=== PATIENT | female | born 1970 ===

== ENCOUNTER 2016-06-03 10:57 | Emergency (ER) | payer OTHER ==
[2016-06-03 11:34] VITALS: RESP 16; TEMP 98.6; BMI 32.9
--- NOTE | 2016-06-03 12:46 | ED PDOC ---
Arrival/HPI <Tomasz Delgadillo DO - Last Filed: 06/03/16 13:54> - General Historian: Patient - History of Present Illness Time/Duration: Prior to Arrival, > week <Conrad Espitia - Last Filed: 06/03/16 14:03> - General Chief Complaint: Finger,Hand,&Wrist Time Seen by Provider: 06/03/16 11:04 - History of Present Illness Narrative History of Present Illness (Text): 06/03/16 12:40 This is a 45 year old female with a PMH history significant for genital herpes presenting to the ED for evaluation of back pain and finger numbness s/p mechanical trip and fall on 05/21/16. The patient reports that she fell onto her outstretched left arm during the fall. She has noted intermittent neck pain since the fall that is managed well at home with IcyHot cream. The patient also notes that for the past 4 days she has noted intermittent numbness in her first, second, and third digits of her left hand related to her arm position. The patient reports no numbness currently and minimal pain currently since she applied IcyHot cream prior to her ED arrival. PMH: Genital Herpes Meds: Valtrex, Loratidine Surg: x 2 (last 2000), Gastric Bypass (2000), Oophrectomy (2014) Allergy: NKDA Social: Denies Tobacco/EtOH/Illicit Drugs (Conrad Espitia) Past Medical History - Provider Review Nursing Documentation Reviewed: Yes - Travel History Have you recently traveled outside [place] w/in the past 3 mons?: No - Past History Past History: Non-Contributing - Infectious Disease Hx of Infectious Diseases: None - Tetanus Immunization Tetanus Immunization: Up to Date - Reproductive Menopause: Yes (2014 s/p oophrectomy) - Past Medical History Past Medical History: Non-Contributing - Psychiatric Hx Depression: No Hx Emotional Abuse: No Hx Physical Abuse: No Hx Substance Use: No - Suicidal Assessment Feels Threatened In Home Enviroment: No <Conrad Espitia - Last Filed: 06/03/16 14:03> Family/Social History - Physician Review Nursing Documentation Reviewed: Yes Family/Social History: No Known Family HX Smoking Status: Never Smoked Hx Alcohol Use: Yes Hx Substance Use: No Hx Substance Use Treatment: No <Conrad Espitia - Last Filed: 06/03/16 14:03> Allergies/Home Meds <Tomasz Delgadillo DO - Last Filed: 06/03/16 13:54> <OmkarConrad harman - Last Filed: 06/03/16 14:03> Allergies/Adverse Reactions: Allergies No Known Allergies Allergy (Verified 05/08/12 11:20) Review of Systems - Physician Review All systems were reviewed & negative as marked: Yes - Review of Systems Musculoskeletal: Neck Pain, Other (Finger Numbness (1,2,3 digits left hand)). absent: Arthralgias, Joint Swelling Neurological: absent: Headache <Conrad Espitia - Last Filed: 06/03/16 14:03> Physical Exam Vital Signs Reviewed: Yes Temperature: Afebrile Blood Pressure: Normal Pulse: Regular Respiratory Rate: Normal Appearance: Positive for: Well-Appearing, Non-Toxic, Comfortable Pain Distress: None Mental Status: Positive for: Alert and Oriented X 3 - Systems Exam Head: Present: Atraumatic, Normocephalic Pupils: Present: PERRL Extroacular Muscles: Present: EOMI Conjunctiva: Present: Normal Mouth: Present: Moist Mucous Membranes Neck: Present: Normal Range of Motion, Paraspinal Tenderness, Other (Negatvie Modified Spurlings). No: Meningeal Signs, MIDLINE TENDERNESS Cardiovascular: Present: Regular Rate and Rhythm, Normal S1, S2. No: Murmurs Abdomen: Present: Normal Bowel Sounds. No: Tenderness, Distention, Peritoneal Signs Upper Extremity: Present: Normal Inspection, Other (Negative Durkans/Phalens/ Tinnels AIN/PIN/Med/Uln/Rad Nerves intact with 5/5 strength and intact/full sensation ). No: Cyanosis, Edema Lower Extremity: Present: Normal Inspection. No: Edema Neurological: Present: GCS=15, CN II-XII Intact, Speech Normal Skin: Present: Warm, Dry, Normal Color. No: Rashes Psychiatric: Present: Alert, Oriented x 3, Normal Insight, Normal Concentration <Conrad Espitia - Last Filed: 06/03/16 14:03> Vital Signs Temp Pulse Resp BP Pulse Ox 06/03/16 11:28 98.6 F 66 16 120/98 H 99 Medical Decision Making <Tomasz Delgadillo DO - Last Filed: 06/03/16 13:54> Re-evaluation Time: 13:50 Reassessment Condition: Re-examined, Improved - RAD Interpretation Service Unit Operator Oil Well: ED Physician, Radiologist <Conrad Espitia - Last Filed: 06/03/16 14:03> ED Course and Treatment: 06/03/16 12:20 45 year old female with back pain and finger numbness s/p a recent mechanical trip and fall. In agreement with resident note, which includes further HPI details. Patient was seen and evaluated with resident, came up with plan and treatment together. Physical exam was unremarkable. (Tomasz Delgadillo DO) 06/03/16 12:51 Impression: This is a 45 year old female with a PMH history significant for genital herpes presenting to the ED for evaluation of back pain and finger numbness s/p mechanical trip and fall on 05/21/16. The patient appears clinically stable. The pain is most likely muscular in origin. The patient has been managing well at home with IcyHot cream. The patient has no clinical signs of nerve entrapment or fracture. Differential: Cervical Sprain Muscle Spasm Fracture Plan: C-Spine XR Left Wrist XR Prior Visits: No prior inpatient admissions Progress Note: Patient seen and examined at the bedside. No acute distress. Full use of left UE without ROM impairment. Full ROM about the next. No pain to palpation of bony landmarks. The patient appears clinically well. Will preform imaging studies to ensure no fractures or dislocations are present. Patient will be instructed to follow up with PMD upon discharge. 06/03/16 13:52 XR results Negative. Results explained to the patient. The patient is currently asymptomatic. The patient was medically cleared for discharge. ( Conrad Espitia) - RAD Interpretation Narrative RAD Interpretations (Text): 06/03/16 13:49 PROCEDURE: Left Wrist Radiographs: No acute displaced fracture, dislocation, or significant joint effusion identified. PROCEDURE: Cervical Spine Radiographs: Straightening of the normal cervical lordosis may be related to muscle spasm or positioning. No acute displaced fracture identified. Dens tip appears intact. 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 BEL has examined the patient and agrees with the treatment plan. - Scribe Statement The provider has reviewed the documentation as recorded by the Scribe <Tomasz Delgadillo DO - Last Filed: 06/03/16 13:54> <Conrad Espitia - Last Filed: 06/03/16 14:03> - Scribe Statement Blanca Aguayo (Tomasz Delgadillo DO) Disposition/Present on Arrival <Tomasz Delgadillo DO - Last Filed: 06/03/16 13:54> - Present on Arrival Any Indicators Present on Arrival: No History of DVT/PE: No History of Uncontrolled Diabetes: No Urinary Catheter: No History of Decub. Ulcer: No History Surgical Site Infection Following: None - Disposition Have Diagnosis and Disposition been Completed?: Yes Disposition Time: 13:15 Patient Plan: Discharge <Conrad Espitia - Last Filed: 06/03/16 14:03> - Disposition Diagnosis: Neck pain Patient Problems: Current Active Problems Problem Status Diagnosed Neck pain Acute Condition: GOOD Discharge Instructions (ExitCare): Cervical Strain (DC), Neck Exercises (GEN), Wrist Sprain (ED), Fall Prevention (ED) Print Language: FAROESE Additional Instructions: 1.) Ensure proper footing and foot lerma for walking 2.) Continue use of IcyHot cream as needed 3.) Stretching exercises for relief of cervical tension 4.) Maintain adequate hydration 5.) Follow up with PMD 6.) If symptoms return, please return to the ED for evaluation 7.) If symptoms persist, or if there is continued clinical concern, x-ray follow -up in 7-10 days should be considered.
--- NOTE | 2016-06-03 13:50 | RAD ---
PROCEDURE: Left Wrist Radiographs. HISTORY: fall COMPARISON: None available. FINDINGS: BONES: No acute displaced fracture. JOINTS: No dislocation. SOFT TISSUES: Unremarkable. No evidence of radiopaque foreign body OTHER FINDINGS: None. IMPRESSION: No acute displaced fracture, dislocation, or significant joint effusion identified. If symptoms persist, or if there is continued clinical concern, x-ray follow-up in 7-10 days should be considered.
--- NOTE | 2016-06-03 13:52 | RAD ---
PROCEDURE: Cervical Spine Radiographs. HISTORY: Pain. COMPARISON: None available. FINDINGS: BONES: Straightening of the normal cervical lordosis may be related to muscle spasm or positioning. No acute displaced fracture identified. Dens tip appears intact. DISC SPACES: Unremarkable. SOFT TISSUES: No prevertebral soft tissue swelling. OTHER FINDINGS: None. IMPRESSION: Straightening of the normal cervical lordosis may be related to muscle spasm or positioning.
[2016-06-03 14:51] VITALS: BP 126/80; PULSE 61; O2SAT 100
== END 2016-06-03 14:30 | disposition home or self-care (01) ==
LOC: ED 10:57
DX: M54.2 Cervicalgia (principal)